=== PATIENT | female | born 1975 | race Caucasian/White ===

== ENCOUNTER 2025-04-15 07:37 | Outpatient (CLI) | payer BC | END 2025-04-15 07:38 | disposition home or self-care (01) | LOC: ULT 07:37 | PROVIDERS: ATTEND Physician Assistant | DX: K74.00 Hepatic fibrosis, unspecified (principal); R16.0 Hepatomegaly, not elsewhere classified; K76.0 Fatty (change of) liver, not elsewhere classified | CPT/HCPCS: 76705 ==

== ENCOUNTER 2025-08-23 07:42 | Day surgery (SDC) | payer BC ==
[2025-08-23 08:20] LABS: #Basophils 0.03 10x3/uL (0.0-0.2); #Eosinophils 0.13 10x3/uL (0.0-0.7); #Monocytes 0.60 10x3/uL (0.11-0.59); #Neutrophils 2.59 10x3/uL (1.40-6.50); %Basophils 0.6 % (0.0-1.0); %Eosinophils 2.7 % (0.0-10.0); %Lymphocytes 30.7 % (21.0-51.0); %Monocytes 12.4 % (0.0-10.0); %Neutrophils 53.4 % (42.0-75.0); Hematocrit 41.5 % (36.0-47.0); Hemoglobin 13.3 g/dL (12.0-16.0); Mean Corpuscular Hemoglobin 29.5 pg (27.0-31.0); Mean Corpuscular Volume 92.0 fL (78.0-98.0); Platelet Count 357 10x3/uL (130-400); Red Blood Cell (RBC) Count 4.51 mill/uL (4.20-5.40); White Blood Cell (WBC) Count 4.85 10x3/uL (4.8-10.8)
[2025-08-23 08:37] LABS: INR-International Normal Ratio 1.0; PTT 28.2 sec (22.9-36.1); Prothrombin Time 13.5 sec (12.0-14.7)
[2025-08-23] MEDS ORDERED: Lidocaine 1% PF 5 ML VIAL ONE (08:53)
[2025-08-23] MEDS ORDERED: Sodium Bicarbonate 2.5 MEQ/5 ML SDV ONE (08:54)
== END 2025-08-23 13:00 | disposition home or self-care (01) ==
LOC: ULT 07:42
PROVIDERS: ATTEND Internal Medicine Gastroenterology
PROC: 0F9 Hepatobiliary System and Pancreas, Drainage (ICD-10-PCS; principal; 2025-08-23)
DX: K74.69 Other cirrhosis of liver (principal); Z91.013 Allergy to seafood
CPT/HCPCS: 36000; 36415; 47000; 76942; 85025; 85610; 85730; 88307; J2250; J3010